=== PATIENT | female | born 1975 | race African-American/Black ===

== ENCOUNTER 2021-04-23 03:56 | Emergency (ER) | payer MEDICAID, OTHER ==
[~2021-04-23] VITALS: Ht 162.6 cm; Wt 72.6 kg
[2021-04-23 04:00] VITALS: BP 108/71
--- NOTE | 2021-04-23 04:12 | NUR ---
PATIENT TAKEN TO CT
== END 2021-04-23 05:10 | disposition home or self-care (01) ==
LOC: ER 03:58
DX: S09.8XXA Other specified injuries of head, initial encounter (principal); Y04.0XXA Assault by unarmed brawl or fight, initial encounter; Y93.89 Activity, other specified; Y92.89 Other specified places as the place of occurrence of the external cause; Y99.8 Other external cause status
CPT/HCPCS: 70450-TC